=== PATIENT | male | born 1990 | race Caucasian/White ===

== ENCOUNTER 2019-10-15 12:51 | Inpatient (IN) | payer OTHER ==
--- NOTE | 2019-10-15 13:20 | BHS.RME ---
Substance Use & Tx History - Substance Use History Opiates (Heroin) Substance amount: 10-15 bags Frequency of use: Daily Substance route: Inhalation (ex: sniffing or snorting) Date of Last Use: 10/14/19 Cocaine (Powder) Substance amount: 0.5 gram Frequency of use: Daily Substance route: Inhalation (ex: sniffing or snorting) Date of Last Use: 10/14/19 Physical/Psych/Mental Status - Behavior General Behavior: Decreased activity Eye Contact: Normal - Cooperativeness Cooperativeness: Reluctant - Thinking Thought Processes: Tight Thought content: Future oriented - Physical Health Problems Is patient presently having any pain?: No Does patient presently have any injuries (include location): No Does patient currently have a fever: No Is patient : No COWS - Scale Resting Pulse: 0= [place] 80 or Below Sweatin= Beads of Sweat on Face Restless Observation: 1= Difficult to Sit Still Pupil Size: 1= Pupils >than Normal Bone or Joint Aches: 1= Mild Discomfort Runny Nose/ Eye Tearin= Runny Nose/Eyes GI Upset > 30mins: 2= Nausea/Diarrhea Tremor Observation: 2= Slight Tremor Visible Yawning Observation: 0= None Anxiety or Irritability: 2=Irritable/Anxious Goose Flesh Skin: 0=Smooth Skin COWS Score: 14
--- NOTE | 2019-10-15 13:48 | HP ---
COWS - Scale Resting Pulse: 0= [place] 80 or Below Sweatin= Beads of Sweat on Face Restless Observation: 1= Difficult to Sit Still Pupil Size: 1= Pupils >than Normal Bone or Joint Aches: 1= Mild Discomfort Runny Nose/ Eye Tearin= Runny Nose/Eyes GI Upset > 30mins: 2= Nausea/Diarrhea Tremor Observation: 2= Slight Tremor Visible Yawning Observation: 0= None Anxiety or Irritability: 2=Irritable/Anxious Goose Flesh Skin: 0=Smooth Skin COWS Score: 14 CIWA Score - Admission Criteria OASAS Guidelines: Admission for Medically Managed Detox: Requires at least one of the followin. CIWA greater than 12 2. Seizures within the past 24 hours 3. Delirium tremens within the past 24 hours 4. Hallucinations within the past 24 hours 5. Acute intervention needed for co occurring medical disorder 6. Acute intervention needed for co occurring psychiatric disorder 7. Severe withdrawal that cannot be handled at a lower level of care (continued vomiting, continued diarrhea, abnormal vital signs) requiring intravenous medication and/or fluids 8. Admitting History and Physical - Admission Chief Complaint: " I want to get clean and get into long-term program at [facility]." History of Present Illness: 29 year old male with history of opioid dependence with multiple detoxes in the past in [facility] in [place] with no success. He is seeking detox and then transfer to [facility] this time. PMH: None Psych: Anxiety and Depression on Lexapro Social: Homelss and not in alf system Legal: Has court date to appear soon due to drug possession. Heroin: 10-15 bags of heroin daily started at age 23 and last used 10/14/2019, intranasally. No history of OD. No history of street methadone. Does not carry Narcan Kit. Cocaine: 1/2 gram daily and intranasally using. first started at age 19 and last used 10/14/2019 Patient is appropriate for detox due to co-morbid disorder and is at high risk for overdose consider how much heroin he is using on the streets and his poor environment for recovery. Hopefully in this admission he can be linked to an inpatient long-term rehab. History Source: Patient Limitations to Obtaining History: No Limitations - Past Surgical History Past Surgical History: Yes: None - Social History Usual Living Arrangement: Yes: Alone Do you think of yourself as: Straight/Heterosexual ADL: Independent Occupation: unemployed, [employer] History of Recent Travel: No Admission ROS S - HPI Exam Limitations: No Limitations - Ebola screening Have you traveled outside of the country in the last 21 days: No Have you had contact with anyone from an Ebola affected area: No Have you been sick,other than usual withdrawal symptoms: No Do you have a fever: No - Review of Systems Constitutional: No Symptoms Reported EENT: reports: No Symptoms Reported Respiratory: reports: No Symptoms reported Cardiac: reports: No Symptoms Reported GI: reports: No Symptoms Reported : reports: No Symptoms Reported Musculoskeletal: reports: No Symptoms Reported Integumentary: reports: No Symptoms Reported Neuro: reports: No Symptoms reported Endocrine: reports: No Symptoms Reported Hematology: reports: No Symptoms Reported Psychiatric: reports: Judgement Intact, Orientated x3, Agitated, Anxious, Depressed Other Systems: Reviewed and Negative Patient History - Patient Medical History Hx Anemia: No Hx Asthma: No Hx Chronic Obstructive Pulmonary Disease (COPD): No Hx Cancer: No Hx Cardiac Disorders: No Hx Congestive Heart Failure: No Hx Hypertension: No Hx Hypercholesterolemia: No Hx Pacemaker: No HX Cerebrovascular Accident: No Hx Seizures: No Hx Dementia: No Hx Diabetes: No Hx Gastrointestinal Disorders: No Hx Liver Disease: No Hx Genitourinary Disorders: No Hx Sexually Transmitted Disorders: No Hx Renal Disease (ESRD): No Hx Thyroid Disease: No Hx Human Immunodeficiency Virus (HIV): No (last tested long time ago) Hx Hepatitis C: No Hx Depression: No Hx Suicide Attempt: No Hx Bipolar Disorder: No Hx Schizophrenia: No - Patient Surgical History Past Surgical History: No - PPD History Previous Implant?: Yes Documented Results: Negative w/o proof Implanted On Prior [facility] Admission?: No Date: 10/16/17 Results: negative PPD to be Administered?: Yes - Smoking Cessation Smoking history: Current every day smoker Have you smoked in the past 12 months: Yes Aproximately how many cigarettes per day: 40 Hx Chewing Tobacco Use: No Initiated information on smoking cessation: Yes 'Breaking Loose' booklet given: 10/15/19 - Substances abused Heroin Substance route: Inhalation Frequency: Daily Amount used: 10-15 bags Age of first use: 23 Date of last use: 10/14/19 Cocaine Substance route: Inhalation Amount used: 1/2 gram Age of first use: 19 Date of last use: 10/14/19 Admission Physical Exam [facility] - Physical General Appearance: Yes: Mild Distress, Tremorous, Irritable, Anxious HEENTM: Yes: EOMI, Hearing grossly Normal, Normal ENT Inspection, Normocephalic, Normal Voice, CORNELIO, Pharynx Normal, Tm's normal Respiratory: Yes: Chest Non-Tender, Lungs Clear, Normal Breath Sounds, No Respiratory Distress, No Accessory Muscle Use Neck: Yes: No masses,lesions,Nodules, Supple, Trachea in good position Breast: Yes: Within Normal Limits Cardiology: Yes: Regular Rhythm, Regular Rate, S1, S2 Abdominal: Yes: Non Tender, Soft, Increased Bowel Sounds, Protuberent Genitourinary: Yes: Within Normal Limits Back: Yes: Normal Inspection Musculoskeletal: Yes: full range of Motion, Gait Steady, Pelvis Stable Extremities: Yes: Normal Capillary Refill, Normal Inspection, Normal Range of Motion, Non-Tender Neurological: Yes: operator weapon locating radar II-XII NML intact, Fully Oriented, Alert, Motor Strength 5/5, Normal Mood/Affect, Normal Response Integumentary: Yes: Normal Color, Warm Lymphatic: Yes: Within Normal Limits - Diagnostic (1) Opioid dependence with withdrawal Current Visit: Yes Status: Acute (2) Anxiety and depression Current Visit: Yes Status: Acute (3) Cocaine use disorder, mild, in early remission, abuse Current Visit: Yes Status: Acute (4) Nicotine dependence Current Visit: Yes Status: Acute Cleared for Admission [facility] - Detox or Rehab [facility] Level of Care: Medically Managed Detox Regimen/Protocol: Methadone Claeared for Rehab Admission: No Screened but not Admitted - Documentation of Visit Screened but not Admitted: No Breathalyzer - Breathalyzer Breathalyzer: 0 Urine Drug Screen - Test Device Lot number: [id number] Expiration date: 07/11/21 - Control Is test valid?: Yes - Results Drug screen NEGATIVE: No Urine drug screen results: THC-Marijuana, ERWIN-Cocaine, FEN-Fentanyl, MOP-Opiates Inpatient Rehab Admission - Rehab Decision to Admit Inpatient rehab admission?: No
[2019-10-15] MEDS ORDERED: MAGNESIUM HYDROX 2400MG/30ML ORAL SUSPENSION 30 ML CUP PO PRN (13:55)
[2019-10-15] MEDS ORDERED: IBUPROFEN 400 MG TABLET (FP) PO PRN (13:55)
[2019-10-15] MEDS ORDERED: MAG HYDROX/AL HYDROX/SIMETH 30 ML UNIT-DOSE CUP PO PRN (13:55)
[2019-10-15] MEDS ORDERED: MENTHOL/PHENOL 1 EACH UD MM PRN (13:55)
[2019-10-15] MEDS ORDERED: ACETAMINOPHEN 325 MG TABLET (FP) PO PRN ×2 (13:55)
[2019-10-15] MEDS ORDERED: MAGNESIUM CITRATE 300 ML BOTTLE PO PRN (13:55)
[2019-10-15] MEDS ORDERED: cloNIDine HCL 0.1 MG TABLET PO PRN (13:55)
[2019-10-15] MEDS ORDERED: METHOCARBAMOL 500 MG TABLET PO PRN (13:55)
[2019-10-15 14:10] VITALS: BMI 30.4
[2019-10-15] MEDS ORDERED: METHADONE HCL 10 MG TABLET (FOR DETOX USE ONLY) PO ONE (15:10)
[2019-10-15] MEDS ORDERED: ONDANSETRON *ODT* 4 MG TABLET SL ONE (15:12)
[2019-10-15] MEDS ORDERED: BISMUTH SUBSALICYLATE 262 MG/15 ML BTL PO PRN (15:29)
[2019-10-15] MEDS: hydrOXYzine PAMOATE 25 MG CAPSULE (FP) PO SCH ×3 (15:47→22:49)
[2019-10-15] MEDS: NICOTINE 7 MG/24 HOURS TOPICAL PATCH TD SCH (15:47)
[2019-10-15] MEDS: NICOTINE POLACRILEX 2 MG GUM BUC PRN (15:49)
[2019-10-15] MEDS: PRENATAL VITAMINS W/ FOLIC ACID TABLET (FP) PO SCH (15:53)
[2019-10-15 19:41] LABS: HEMATOCRIT 46.4 % (35.4-49); HEMOGLOBIN 15.5 GM/dL (11.7-16.9); MCH 31.5 pg (25.7-33.7); MCHC 33.5 g/dl (32.0-35.9); MEAN CELL VOLUME 94.2 fl (80-96); MEAN PLT VOLUME 8.5 fl (7.5-11.1); PLATELET COUNT 304 K/MM3 (134-434); RBC 4.92 M/mm3 (4.00-5.60); RDW 14.2 % (11.9-15.9); WHITE BLOOD COUNT 12.5 K/mm3 (4.0-10.0)
[2019-10-15 20:12] LABS: ALBUMIN 4.2 g/dl (3.4-5.0); BILIRUBIN,TOTAL 0.6 mg/dL (0.2-1); BLOOD UREA NITROGEN 10.9 mg/dL (7-18); CALCIUM 9.7 mg/dL (8.5-10.1); POTASSIUM 4.3 mmol/L (3.5-5.1); TOT PROT 7.5 g/dl (6.4-8.2)
[2019-10-15] MEDS ORDERED: MELATONIN 5 MG TABLETS PO SCH (22:00)
[2019-10-15] MEDS: THIAMINE HCL 100 MG TABLET (FP) PO SCH (22:50)
[2019-10-16] MEDS: hydrOXYzine PAMOATE 25 MG CAPSULE (FP) PO SCH ×5 (05:48→22:17)
[2019-10-16] MEDS ORDERED: METHADONE HCL 5 MG TABLET (FOR DETOX USE ONLY) ONE (08:49)
[2019-10-16] MEDS ORDERED: METHADONE HCL 10 MG TABLET (FOR DETOX USE ONLY) ONE (08:49)
[2019-10-16] MEDS ORDERED: METHADONE (DETOX) 20 MG, METHADONE (DETOX) 5 MG PO ONE (10:00)
--- NOTE | 2019-10-16 10:19 | CONSULT ---
[facility] Psychiatric Consult - Data Date of interview: 10/16/19 Admission source: Self-referred Identifying data: Mr Yañez is a 29 years old single , unemployed with no source of income, homeless seeking detox treatment for opioid and cocaine Substance Abuse History: Reports history of heroin and cocaine use. Refer to addiction counselor's summary for further information Medical History: Unremarkable. Smokes cigarettes 2 ppd Psychiatric History: Patient is very irritable, uncooperative, projecting an appearence of hostility. Reports that he has been treated for depression and anxiety and claims not to know onset of treatment, circumstance of seeking it etc. He answers:" I don't know" . Denies previous psychiatric hospitalization/suicidal attempt and current outpatient treatment. Reports being prescribed Lexapro 20 mg/day by his primary care physician. At present, reports feeling depres, anxious and sleeping poorly Physical/Sexual Abuse/Trauma History: Denies history of abuse as a child or DV relationship as an adult Mental Status Exam - Mental Status Exam Alert and Oriented to: Time, Place, Person Cognitive Function: Fair Patient Appearance: Disheveled Mood: Depressed, Anxious, Irritable Affect: Appropriate Patient Behavior: Uncooperative Speech Pattern: Clear Voice Loudness: Normal Thought Process: Intact, Goal Oriented Thought Disorder: Not Present Hallucinations: Denies Suicidal Ideation: Denies Homicidal Ideation: Denies Insight/Judgement: Poor Sleep: Poorly Appetite: Poor Muscle strength/Tone: Normal Gait/Station: Normal Psychiatric Findings - Problem List (White 1, 2,3) (1) Depression with anxiety Current Visit: Yes Status: Chronic (2) MDD (major depressive disorder) Current Visit: Yes Status: Ruled-out (3) Substance induced mood disorder Current Visit: Yes Status: Acute (4) Substance-induced sleep disorder Current Visit: Yes Status: Acute (5) Opioid dependence with withdrawal Current Visit: Yes Status: Acute (6) Cocaine use disorder, mild, in early remission, abuse Current Visit: Yes Status: Acute (7) Nicotine dependence Current Visit: Yes Status: Chronic - Initial Treatment Plan Initial Treatment Plan: 1) Start Belsomra 10 mg po HS prn for insomia. 2) Continue inpatient detoxification
[2019-10-16] MEDS: PRENATAL VITAMINS W/ FOLIC ACID TABLET (FP) PO SCH (10:48)
[2019-10-16] MEDS: NICOTINE 21 MG/24 HOURS TOPICAL PATCH TD SCH (10:48)
[2019-10-16] MEDS: ESCITALOPRAM OXALATE 20 MG TABLET PO SCH (10:49)
[2019-10-16] MEDS: NICOTINE POLACRILEX 2 MG GUM BUC PRN (10:50)
[2019-10-16] MEDS: NICOTINE 7 MG/24 HOURS TOPICAL PATCH TD SCH (11:04)
--- NOTE | 2019-10-16 12:20 | PN ---
BHS COWS - Scale Resting Pulse: 0= [place] 80 or Below Sweatin= Chills/Flushing Restless Observation: 1= Difficult to Sit Still Pupil Size: 0= Normal to Room Light Bone or Joint Aches: 2= Severe Diffuse Aches Runny Nose/ Eye Tearin= Runny Nose/Eyes GI Upset > 30mins: 0= None Tremor Observation of Outstretched Hands: 2= Slight Tremor Visible Yawning Observation: 2= >3x During Session Anxiety or Irritability: 2=Irritable/Anxious Goose Flesh Skin: 3=Piloerection COWS Score: 15 BHS Progress Note (SOAP) Subjective: sweats chills irritable agitation shakes body aches nausea Objective: 10/16/19 12:20 Vital Signs Temperature 99.0 F 10/16/19 09:55 Pulse Rate 77 10/16/19 09:55 Respiratory Rate 17 10/16/19 09:55 Blood Pressure 138/81 10/16/19 09:55 O2 Sat by Pulse Oximetry (%) Laboratory Tests 10/15/19 10/15/19 10/15/19 14:00 14:00 14:00 WBC 12.5 H RBC 4.92 Hgb 15.5 Hct 46.4 MCV 94.2 MCH 31.5 MCHC 33.5 RDW 14.2 Plt Count 304 MPV 8.5 Sodium 141 Potassium 4.3 Chloride 105 Carbon Dioxide 30 Anion Gap 6 L BUN 10.9 Creatinine 1.0 Est GFR (CKD-EPI)AfAm 115.72 Est GFR (CKD-EPI)NonAf 99.85 Random Glucose 84 Calcium 9.7 Total Bilirubin 0.6 AST 14 L ALT 31 Alkaline Phosphatase 24 L Total Protein 7.5 Albumin 4.2 RPR Titer Nonreactive labs noted aaox3 ambulating no acute distress Assessment: 10/16/19 12:20 withdrawals Plan: continue detox increase fluids zofran prn motrin/tylenol prn
[2019-10-16] MEDS: THIAMINE HCL 100 MG TABLET (FP) PO SCH (22:17)
[2019-10-16] MEDS: SUVOREXANT 10 MG TABLET PO PRN (22:17)
[2019-10-17] MEDS: hydrOXYzine PAMOATE 25 MG CAPSULE (FP) PO SCH ×5 (05:53→23:32)
[2019-10-17] MEDS ORDERED: METHADONE HCL 10 MG TABLET (FOR DETOX USE ONLY) PO ONE (10:00)
[2019-10-17] MEDS: ESCITALOPRAM OXALATE 20 MG TABLET PO SCH (10:56)
[2019-10-17] MEDS: NICOTINE 21 MG/24 HOURS TOPICAL PATCH TD SCH (10:56)
[2019-10-17] MEDS: PRENATAL VITAMINS W/ FOLIC ACID TABLET (FP) PO SCH (10:56)
--- NOTE | 2019-10-17 12:33 | PN ---
S COWS - Scale Resting Pulse: 0= [place] 80 or Below Sweatin= No chills or Flushing Restless Observation: 1= Difficult to Sit Still Pupil Size: 1= Pupils >than Normal Bone or Joint Aches: 1= Mild Discomfort Runny Nose/ Eye Tearin= Nasal Congestion GI Upset > 30mins: 1= Stomach Cramp Tremor Observation of Outstretched Hands: 2= Slight Tremor Visible Yawning Observation: 1= 1-2x During Session Anxiety or Irritability: 2=Irritable/Anxious Goose Flesh Skin: 0=Smooth Skin COWS Score: 10 BHS Progress Note (SOAP) Subjective: alert,irritable,anxious,interrupted sleep,tremor,pain in the body and back Objective: 10/17/19 12:31 Vital Signs Temperature 98.4 F 10/17/19 08:47 Pulse Rate 66 10/17/19 08:47 Respiratory Rate 17 10/17/19 08:47 Blood Pressure 126/76 10/17/19 08:47 O2 Sat by Pulse Oximetry (%) Laboratory Last Values WBC 12.5 K/mm3 (4.0-10.0) H 10/15/19 14:00 RBC 4.92 M/mm3 (4.00-5.60) 10/15/19 14:00 Hgb 15.5 GM/dL (11.7-16.9) 10/15/19 14:00 Hct 46.4 % (35.4-49) 10/15/19 14:00 MCV 94.2 fl (80-96) 10/15/19 14:00 MCH 31.5 pg (25.7-33.7) 10/15/19 14:00 MCHC 33.5 g/dl (32.0-35.9) 10/15/19 14:00 RDW 14.2 % (11.9-15.9) 10/15/19 14:00 Plt Count 304 K/MM3 (134-434) 10/15/19 14:00 MPV 8.5 fl (7.5-11.1) 10/15/19 14:00 Sodium 141 mmol/L (136-145) 10/15/19 14:00 Potassium 4.3 mmol/L (3.5-5.1) 10/15/19 14:00 Chloride 105 mmol/L (98-107) 10/15/19 14:00 Carbon Dioxide 30 mmol/L (21-32) 10/15/19 14:00 Anion Gap 6 MMOL/L (8-16) L 10/15/19 14:00 BUN 10.9 mg/dL (7-18) 10/15/19 14:00 Creatinine 1.0 mg/dL (0.55-1.3) 10/15/19 14:00 Est GFR (CKD-EPI)AfAm 115.72 10/15/19 14:00 Est GFR (CKD-EPI)NonAf 99.85 10/15/19 14:00 Random Glucose 84 mg/dL (74-106) 10/15/19 14:00 Calcium 9.7 mg/dL (8.5-10.1) 10/15/19 14:00 Total Bilirubin 0.6 mg/dL (0.2-1) 10/15/19 14:00 AST 14 U/L (15-37) L 10/15/19 14:00 ALT 31 U/L (13-61) 10/15/19 14:00 Alkaline Phosphatase 24 U/L (45-117) L 10/15/19 14:00 Total Protein 7.5 g/dl (6.4-8.2) 10/15/19 14:00 Albumin 4.2 g/dl (3.4-5.0) 10/15/19 14:00 RPR Titer Nonreactive (NONREACTIVE) 10/15/19 14:00 Assessment: 10/17/19 12:32 withdrawal symptom Plan: continue detox methadone regimen,vaium 10 mgs po q 4 hrs prn for 72 hrs for withdrawal
[2019-10-17] MEDS: diazePAM 5 MG TABLET PO PRN ×3 (14:31→22:36)
[2019-10-17] MEDS: NICOTINE POLACRILEX 2 MG GUM BUC PRN (17:06)
[2019-10-17] MEDS: SUVOREXANT 10 MG TABLET PO PRN (22:39)
[2019-10-17] MEDS: THIAMINE HCL 100 MG TABLET (FP) PO SCH (23:32)
[2019-10-18] MEDS: hydrOXYzine PAMOATE 25 MG CAPSULE (FP) PO SCH ×5 (05:19→22:20)
[2019-10-18] MEDS: diazePAM 5 MG TABLET PO PRN ×5 (05:20→22:21)
[2019-10-18] MEDS ORDERED: METHADONE HCL 5 MG TABLET (FOR DETOX USE ONLY) ONE (08:57)
[2019-10-18] MEDS ORDERED: METHADONE HCL 10 MG TABLET (FOR DETOX USE ONLY) ONE (08:57)
[2019-10-18] MEDS ORDERED: METHADONE (DETOX) 10 MG, METHADONE (DETOX) 5 MG PO ONE (10:00)
[2019-10-18] MEDS: NICOTINE 21 MG/24 HOURS TOPICAL PATCH TD SCH (10:12)
[2019-10-18] MEDS: PRENATAL VITAMINS W/ FOLIC ACID TABLET (FP) PO SCH (10:12)
[2019-10-18] MEDS: ESCITALOPRAM OXALATE 20 MG TABLET PO SCH (10:12)
[2019-10-18] MEDS: NICOTINE POLACRILEX 2 MG GUM BUC PRN (10:18)
[2019-10-18 11:41] LABS: HEMATOCRIT 43.7 % (35.4-49); HEMOGLOBIN 15.4 GM/dL (11.7-16.9); MCH 32.3 pg (25.7-33.7); MCHC 35.2 g/dl (32.0-35.9); MEAN CELL VOLUME 91.6 fl (80-96); PLATELET COUNT 278 K/MM3 (134-434); RBC 4.77 M/mm3 (4.00-5.60); WHITE BLOOD COUNT 7.7 K/mm3 (4.0-10.0)
--- NOTE | 2019-10-18 12:16 | PN ---
BHS COWS - Scale Resting Pulse: 0= [place] 80 or Below Sweatin= Chills/Flushing Restless Observation: 1= Difficult to Sit Still Pupil Size: 0= Normal to Room Light Bone or Joint Aches: 1= Mild Discomfort Runny Nose/ Eye Tearin= Nasal Congestion GI Upset > 30mins: 0= None Tremor Observation of Outstretched Hands: 1= Tremor [place], Not Seen Yawning Observation: 1= 1-2x During Session Anxiety or Irritability: 1=Feels Anxious/Irritable Goose Flesh Skin: 0=Smooth Skin COWS Score: 7 BHS Progress Note (SOAP) Subjective: restless sweats anxiety Objective: 10/18/19 12:15 Vital Signs Temperature 97.9 F 10/18/19 08:55 Pulse Rate 74 10/18/19 08:55 Respiratory Rate 18 10/18/19 08:55 Blood Pressure 153/74 10/18/19 08:55 O2 Sat by Pulse Oximetry (%) Laboratory Tests 10/15/19 10/15/19 10/15/19 14:00 14:00 14:00 WBC 12.5 H RBC 4.92 Hgb 15.5 Hct 46.4 MCV 94.2 MCH 31.5 MCHC 33.5 RDW 14.2 Plt Count 304 MPV 8.5 Sodium 141 Potassium 4.3 Chloride 105 Carbon Dioxide 30 Anion Gap 6 L BUN 10.9 Creatinine 1.0 Est GFR (CKD-EPI)AfAm 115.72 Est GFR (CKD-EPI)NonAf 99.85 Random Glucose 84 Calcium 9.7 Total Bilirubin 0.6 AST 14 L ALT 31 Alkaline Phosphatase 24 L Total Protein 7.5 Albumin 4.2 RPR Titer Nonreactive 10/18/19 07:50 WBC 7.7 RBC 4.77 Hgb 15.4 Hct 43.7 MCV 91.6 MCH 32.3 MCHC 35.2 RDW 14.0 Plt Count 278 MPV 8.0 Sodium Potassium Chloride Carbon Dioxide Anion Gap BUN Creatinine Est GFR (CKD-EPI)AfAm Est GFR (CKD-EPI)NonAf Random Glucose Calcium Total Bilirubin AST ALT Alkaline Phosphatase Total Protein Albumin RPR Titer labs noted aaox3 ambulating no acute distress Assessment: 10/18/19 12:16 withdrawals Plan: continue detox increase fluids
[2019-10-18] MEDS: THIAMINE HCL 100 MG TABLET (FP) PO SCH (22:20)
[2019-10-18] MEDS: SUVOREXANT 10 MG TABLET PO PRN (22:24)
[2019-10-19] MEDS: hydrOXYzine PAMOATE 25 MG CAPSULE (FP) PO SCH ×5 (06:37→21:32)
[2019-10-19] MEDS: diazePAM 5 MG TABLET PO PRN ×4 (06:38→22:06)
[2019-10-19] MEDS ORDERED: METHADONE HCL 10 MG TABLET (FOR DETOX USE ONLY) PO ONE (10:00)
--- NOTE | 2019-10-19 10:23 | PN ---
BHS COWS - Scale Resting Pulse: 1= [place] 81-100 Sweatin=Flushed/Facial Moisture Restless Observation: 1= Difficult to Sit Still Pupil Size: 0= Normal to Room Light Bone or Joint Aches: 1= Mild Discomfort Runny Nose/ Eye Tearin= None GI Upset > 30mins: 0= None Tremor Observation of Outstretched Hands: 1= Tremor [place], Not Seen Yawning Observation: 2= >3x During Session Anxiety or Irritability: 1=Feels Anxious/Irritable Goose Flesh Skin: 0=Smooth Skin COWS Score: 9 BHS Progress Note (SOAP) Subjective: sweats shakes interrupted sleep anxiety Objective: 10/19/19 10:23 Vital Signs Temperature 97.2 F L 10/19/19 05:50 Pulse Rate 55 L 10/19/19 05:50 Respiratory Rate 18 10/19/19 05:50 Blood Pressure 121/70 10/19/19 05:50 O2 Sat by Pulse Oximetry (%) Laboratory Tests 10/15/19 10/15/19 10/15/19 14:00 14:00 14:00 WBC 12.5 H RBC 4.92 Hgb 15.5 Hct 46.4 MCV 94.2 MCH 31.5 MCHC 33.5 RDW 14.2 Plt Count 304 MPV 8.5 Sodium 141 Potassium 4.3 Chloride 105 Carbon Dioxide 30 Anion Gap 6 L BUN 10.9 Creatinine 1.0 Est GFR (CKD-EPI)AfAm 115.72 Est GFR (CKD-EPI)NonAf 99.85 Random Glucose 84 Calcium 9.7 Total Bilirubin 0.6 AST 14 L ALT 31 Alkaline Phosphatase 24 L Total Protein 7.5 Albumin 4.2 RPR Titer Nonreactive 10/18/19 07:50 WBC 7.7 RBC 4.77 Hgb 15.4 Hct 43.7 MCV 91.6 MCH 32.3 MCHC 35.2 RDW 14.0 Plt Count 278 MPV 8.0 Sodium Potassium Chloride Carbon Dioxide Anion Gap BUN Creatinine Est GFR (CKD-EPI)AfAm Est GFR (CKD-EPI)NonAf Random Glucose Calcium Total Bilirubin AST ALT Alkaline Phosphatase Total Protein Albumin RPR Titer aaox3 ambulating no acute distress Assessment: 10/19/19 10:23 withdrawals Plan: continue detox d/c in am
[2019-10-19] MEDS: NICOTINE 21 MG/24 HOURS TOPICAL PATCH TD SCH (11:20)
[2019-10-19] MEDS: PRENATAL VITAMINS W/ FOLIC ACID TABLET (FP) PO SCH (11:20)
[2019-10-19] MEDS: ESCITALOPRAM OXALATE 20 MG TABLET PO SCH (11:20)
[2019-10-19] MEDS: NICOTINE POLACRILEX 2 MG GUM BUC PRN (11:22)
[2019-10-19] MEDS: SUVOREXANT 10 MG TABLET PO PRN (21:48)
[2019-10-19] MEDS: THIAMINE HCL 100 MG TABLET (FP) PO SCH (22:06)
[2019-10-20] MEDS ORDERED: METHADONE HCL 5 MG TABLET (FOR DETOX USE ONLY) PO ONE (06:00)
[2019-10-20] MEDS: hydrOXYzine PAMOATE 25 MG CAPSULE (FP) PO SCH ×2 (06:31→10:48)
[2019-10-20] MEDS: diazePAM 5 MG TABLET PO PRN ×2 (06:33→10:53)
--- NOTE | 2019-10-20 08:54 | DS ---
[facility] Detox Discharge Summary Admission Date: 10/15/19 Discharge Date: 10/20/19 - History Present History: Cocaine Dependence, Opioid Dependence - Physical Exam Results Vital Signs: Vital Signs Temperature 97.3 F L 10/20/19 06:43 Pulse Rate 54 L 10/20/19 06:43 Respiratory Rate 16 10/20/19 06:43 Blood Pressure 101/58 L 10/20/19 06:43 O2 Sat by Pulse Oximetry (%) Pertinent Admission Physical Exam Findings: Vital Signs Temperature 97.3 F L 10/20/19 06:43 Pulse Rate 54 L 10/20/19 06:43 Respiratory Rate 16 10/20/19 06:43 Blood Pressure 101/58 L 10/20/19 06:43 O2 Sat by Pulse Oximetry (%) Laboratory Tests 10/15/19 10/15/19 10/15/19 14:00 14:00 14:00 WBC 12.5 H RBC 4.92 Hgb 15.5 Hct 46.4 MCV 94.2 MCH 31.5 MCHC 33.5 RDW 14.2 Plt Count 304 MPV 8.5 Sodium 141 Potassium 4.3 Chloride 105 Carbon Dioxide 30 Anion Gap 6 L BUN 10.9 Creatinine 1.0 Est GFR (CKD-EPI)AfAm 115.72 Est GFR (CKD-EPI)NonAf 99.85 Random Glucose 84 Calcium 9.7 Total Bilirubin 0.6 AST 14 L ALT 31 Alkaline Phosphatase 24 L Total Protein 7.5 Albumin 4.2 RPR Titer Nonreactive 10/18/19 07:50 WBC 7.7 RBC 4.77 Hgb 15.4 Hct 43.7 MCV 91.6 MCH 32.3 MCHC 35.2 RDW 14.0 Plt Count 278 MPV 8.0 Sodium Potassium Chloride Carbon Dioxide Anion Gap BUN Creatinine Est GFR (CKD-EPI)AfAm Est GFR (CKD-EPI)NonAf Random Glucose Calcium Total Bilirubin AST ALT Alkaline Phosphatase Total Protein Albumin RPR Titer aaox3 ambulating no acute distress skin intact - Treatment Hospital Course: Detox Protocol Followed, Detoxed Safely, Responded well, Discharged Condition Good, Rehab Referral Accepted Patient has Accepted a Rehab Referral to: referred to [facility] - Medication Discharge Medications: Ambulatory Orders Baclofen 10 mg PO BID PRN 10/15/19 Escitalopram Oxalate [Lexapro -] 20 mg PO DAILY 10/15/19 - Diagnosis (1) Anxiety and depression Current Visit: Yes Status: Acute (2) Cocaine use disorder, mild, in early remission, abuse Current Visit: Yes Status: Acute (3) Opioid dependence with withdrawal Current Visit: Yes Status: Chronic (4) Substance induced mood disorder Current Visit: Yes Status: Acute (5) Substance-induced sleep disorder Current Visit: Yes Status: Acute (6) Depression with anxiety Current Visit: Yes Status: Chronic (7) Nicotine dependence Current Visit: Yes Status: Chronic Qualifiers: Nicotine product type: cigarettes Substance use status: uncomplicated Qualified Code(s): F17.210 - Nicotine dependence, cigarettes, uncomplicated (8) MDD (major depressive disorder) Current Visit: Yes Status: Ruled-out - AMA Did Patient Leave Against Medical Advice: No
[2019-10-20 09:44] VITALS: BP 123/69; PULSE 89; TEMP 98.1
[2019-10-20] MEDS: ESCITALOPRAM OXALATE 20 MG TABLET PO SCH (10:47)
[2019-10-20] MEDS: NICOTINE 21 MG/24 HOURS TOPICAL PATCH TD SCH (10:48)
[2019-10-20] MEDS: PRENATAL VITAMINS W/ FOLIC ACID TABLET (FP) PO SCH (10:48)
== END 2019-10-20 10:57 | disposition home or self-care (01) | DRG 773 ==
LOC: YASAS 12:51 → Y6N 14:22
PROVIDERS: ADMIT Allergy & Immunology; ATTEND Allergy & Immunology
PROC: HZ2ZZZZ Detoxification Services for Substance Abuse Treatment (ICD-10-PCS; principal; 2019-10-15)
DX: F11.23 Opioid dependence with withdrawal (principal); F14.20 Cocaine dependence, uncomplicated; F17.210 Nicotine dependence, cigarettes, uncomplicated; F19.282 Other psychoactive substance dependence with psychoactive substance-induced sleep disorder; F19.24 Other psychoactive substance dependence with psychoactive substance-induced mood disorder; F41.8 Other specified anxiety disorders; F32.9 Major depressive disorder, single episode, unspecified; Z59.0 Homelessness
CPT/HCPCS: 36415; 80053; 85027; 86593; Q0162